=== PATIENT | male | born 1965 | race Caucasian/White ===

== ENCOUNTER 2018-10-25 12:46 | Emergency (ER) | payer BC ==
--- NOTE | 2018-10-25 13:57 | ER Document Report ---
Addendum entered and electronically signed by MARGARETH TAYLOR PA-C 11/14/18 10:38: Discharge - Discharge Clinical Impression: Sebaceous cyst Condition: Good Disposition: HOME, SELF-CARE Additional Instructions: You were seen in the emergency department this afternoon for a bump on your left leg. After putting ultrasound on it it appears that it is a fluid-filled cyst. There was no blood flow going to it and these things can occur spontaneously or as a result of minor trauma slight bump in your escobar. Nonetheless, these are typically benign and your exam was overall reassuring. It should resorb over the next 1 to 2 weeks. When you do get back home and if you are still having problems with it please follow-up with your primary doctor in the office to get it reassessed. It was deep enough that it would be unreasonable to attempt to drain it with a needle here in the emergency department. If you start to develop severe pain in the leg, unilateral swelling of your entire calf or leg, your leg gets red, hot, you have severe pain out of proportion to movement please return to the emergency department as this is a more serious sign of infection or blood clot. Original Note: HPI - HPI Patient complains to provider of: bump left leg Time Seen by Provider: 10/25/18 13:41 Pain Level: 2 Context: Well-appearing 53-year-old male presents emergency department with chief complaint of bump on his left leg. 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 He said it developed on Thursday and it is painful and he has tried to press on it" grind it down". No fevers or chills, no unilateral leg or calf, no redness, no pain out of proportion to movement. No other complaints - MUSCULOSKELETAL Musculoskeletal: REPORTS: Extremity pain - LLE Past Medical History - Social History Smoking Status: Never Smoker Chew tobacco use (# tins/day): No Frequency of alcohol use: None Drug Abuse: None Family History: None Patient has suicidal ideation: No Patient has homicidal ideation: No Renal/ Medical History: Denies: Hx Peritoneal Dialysis Vertical Provider Document - CONSTITUTIONAL Notes: PHYSICAL EXAMINATION: Reviewed vital signs and charting by RN GENERAL: Alert, interacts well. No acute distress. HEAD: Normocephalic, atraumatic. EYES: Pupils equal, round. Extraocular movements intact. ENT: Oral mucosa moist, tongue midline. NECK: Full range of motion. Supple. Trachea midline. EXTREMITIES: Moves all 4 extremities spontaneously. No edema, No cyanosis. Small fluid-filled cyst anterior aspect of the distal left leg mid tibia, no erythema, no warmth PSYCH: Normal affect, normal mood. SKIN: Warm, dry, normal turgor. No rashes or lesions noted. - INFECTION CONTROL TRAVEL OUTSIDE OF THE [place] IN LAST 30 DAYS: No Course - Re-evaluation Re-evalutation: 10/25/18 13:56 I placed ultrasound over the bump and it appears that it is a fluid-filled cyst. Color mode did not display any blood flow to the area. It is too deep to try to aspirate. I told patient that he can do warm compresses and it should resolve over the next 1 to 2 weeks if it does not he can follow-up with his primary doctor. Stable for discharge. - Vital Signs Vital signs: Temp Pulse Resp BP Pulse Ox 97.6 F 71 16 161/87 H 95 10/25/18 12:49 10/25/18 12:49 10/25/18 12:49 10/25/18 12:49 10/25/18 12:49 Discharge - Discharge Clinical Impression: Cyst Condition: Good Disposition: HOME, SELF-CARE Additional Instructions: You were seen in the emergency department this afternoon for a bump on your left leg. After putting ultrasound on it it appears that it is a fluid-filled cyst. There was no blood flow going to it and these things can occur spontaneously or as a result of minor trauma slight bump in your escobar. Nonetheless, these are typically benign and your exam was overall reassuring. It should resorb over the next 1 to 2 weeks. When you do get back home and if you are still having problems with it please follow-up with your primary doctor in the office to get it reassessed. It was deep enough that it would be unreasonable to attempt to drain it with a needle here in the emergency department. If you start to develop severe pain in the leg, unilateral swelling of your entire calf or leg, your leg gets red, hot, you have severe pain out of proportion to movement please return to the emergency department as this is a more serious sign of infection or blood clot.
[2018-10-25 14:15] VITALS: BP 159/88
== END 2018-10-25 14:15 | disposition home or self-care (01) ==
LOC: ER 12:46
DX: L72.3 Sebaceous cyst (principal)
CPT/HCPCS: 99283